=== PATIENT | male | born 1980 | race Caucasian/White ===

== ENCOUNTER 2021-02-08 06:11 | Outpatient (CLI) | payer OTHER ==
[~2021-02-08] VITALS: Ht 180.3 cm; Wt 79.5 kg
== END 2021-02-08 10:50 | disposition home or self-care (01) ==
LOC: PREOP 06:11
PROVIDERS: ATTEND Surgery
DX: Z01.818 Encounter for other preprocedural examination (principal)

== ENCOUNTER 2021-02-10 06:54 | Day surgery (SDC) | payer OTHER ==
[~2021-02-10] VITALS: Ht 180.3 cm; Wt 79.5 kg
[2021-02-10] VITALS (12 sets, daily range): BP systolic 111–161; BP diastolic 63–107
[2021-02-10] MEDS ORDERED: LIDOCAINE PF 2% 5 ML (XYLOCAINE) VIAL ONE (07:06)
[2021-02-10] MEDS ORDERED: ROCURONIUM 10 MG/ML 5 ML SYRINGE IV ONE (07:06)
[2021-02-10] MEDS ORDERED: NEOSTIGMINE 3 MG/3 ML VIAL ONE (07:06)
[2021-02-10] MEDS ORDERED: GLYCOPYRROLATE 0.2 MG/ML (ROBINUL) 2 ML VIAL ONE (07:06)
[2021-02-10] MEDS ORDERED: MIDAZOLAM 2 MG/2 ML (VERSED) VIAL ONE (07:06)
[2021-02-10] MEDS ORDERED: ONDANSETRON 4 MG/2 ML (SDV) Z0FRAN ONE (07:06)
[2021-02-10] MEDS ORDERED: proPOfol 200 MG/20 ML (DIPRIVAN) VIAL IV ONE (07:06)
[2021-02-10] MEDS ORDERED: SEVOFLURANE (ULTANE) 15 ML INHAL SOLN ONE ×4 (07:06→09:18)
[2021-02-10] MEDS ORDERED: fentaNYL INJ 100 MCG/2 ML AMP ONE (07:06)
[2021-02-10] MEDS ORDERED: LIDOCAINE/EPI 1%-1:100,000 (XYLOCAINE) 20ML ONE (07:06)
[2021-02-10] MEDS: LACTATED RINGERS 1,000 ML IV PRN ×3 (07:23→10:48)
[2021-02-10] MEDS ORDERED: ceFAZolin 2 GM IV Premixed 50 ML IV ONE (07:30)
[2021-02-10 07:34] LABS: BASOPHILS % (AUTO) 1 % (0-10); EOSINOPHILS # (AUTO) 0.4 10^3/uL (0.0-0.3); EOSINOPHILS % (AUTO) 6 % (0-10); HEMATOCRIT 45 % (40-54); HEMOGLOBIN 15.3 g/dL (13.3-17.7); LYMPHOCYTES # (AUTO) 1.8 10^3/uL (1.0-4.0); LYMPHOCYTES % (AUTO) 26 % (12-44); MEAN CORPUSCULAR HEMOGLOBIN 31 pg (25-34); MEAN CORPUSCULAR HGB CONC 34 g/dL (32-36); MEAN CORPUSCULAR VOLUME 90 fL (80-99); MEAN PLATELET VOLUME 10.2 fL (9.0-12.2); MONOCYTES # (AUTO) 0.7 10^3/uL (0.0-1.0); MONOCYTES % (AUTO) 10 % (0-12); NEUTROPHILS # (AUTO) 3.9 10^3/uL (1.8-7.8); NEUTROPHILS % (AUTO) 56 % (42-75); PLATELET COUNT 244 10^3/uL (130-400)
--- NOTE | 2021-02-10 08:02 | Progress Note-Pre Operative ---
Pre-Operative Progress Note H&P Reviewed The H&P was reviewed, patient examined and no changes noted. Time Seen by Provider: 07:59 Date H&P Reviewed: Feb 10, 2021 Time H&P Reviewed: 07:59 Pre-Operative Diagnosis: Right inguinal Hernia AGATHA PAZ DO Feb 10, 2021 08:02
[2021-02-10] MEDS ORDERED: HYDROmorphone 2 MG/ML VIAL (DILAUDID) ONE (09:32)
[2021-02-10] MEDS ORDERED: morphine INJ 10 MG/ML 1ML (SYR OR VIAL) IVP ONE (10:00)
[2021-02-10] MEDS ORDERED: HYDROmorphone 2 MG/ML VIAL (DILAUDID) IV ONE (10:00)
[2021-02-10] MEDS: ONDANSETRON 4 MG/2 ML (SDV) Z0FRAN IVP PRN ×2 (10:14→11:01)
--- NOTE | 2021-02-10 10:27 | Anesthesia-General Post-Op ---
General Patient Condition Mental Status/LOC: Same as Preop Cardiovascular: Satisfactory Nausea/Vomiting: Absent Respiratory: Satisfactory Pain: Controlled Complications: Absent Post Op Complications Complications None Follow Up Care/Instructions Patient Instructions None needed. Anesthesia/Patient Condition Patient Condition Patient was seen in PACU and doing well, no complaints, stable vital signs, no apparent adverse anesthesia problems. GINA WOMACK DO Feb 10, 2021 10:27
[2021-02-10] MEDS ORDERED: ACHD5005 PO (10:46)
--- NOTE | 2021-02-10 10:46 | Progress Note-Post Operative ---
Post-Operative Progess Note Surgeon (s)/Hot Packer (s) Surgeon AGATHA PAZ DO Hot Packer: Luana Pre-Operative Diagnosis Right inguinal Hernia Post-Operative Diagnosis Same Indirect Procedure & Operative Findings Date of Procedure 02/10/21 Procedure Performed/Findings After informed consent was obtained, the patient was brought to the operating room and placed on the operating table in a supine position. He was sterilely prepped and draped in a normal fashion. Local lidocaine was used to infiltrate the skin above the umbilicus. I made an incision with #11 blade, carried down to the skin into subcutaneous tissue and then deepened down the subcutaneous tissue with Bovie electrocautery down to the fascia. Fascia was incised with Bovie electrocautery and bluntly entered the abdomen, swept a finger around, placed 0 Vicryl [id number] suture and placed limited trocar port under direct visualization. Created pneumoperitoneum, able to visualize the hernia and took a picture of this and then placed two 8 mm ports about 10 cm on either side of the midline port using a local lidocaine, 11 blade for stab incision and then advanced the robotic port under direct visualization. Once this was in, I then placed the patient in Trendelenburg and then placed the working instruments, the fenestrated bipolar and the scissors. Looked on the leftt side and did not see a hernia. I could see an Indirect hernia defect on the right side. Next, I came across the peritoneum approximately 8 cm away from the hernia defect, going across laterally starting lateral about 17cm and cutting toward the median umbilical ligament. I then carefully dissected the visceral peritoneum away and down and then in the midline, went through the parietal side and dissected down to the pubic tubercle, dissecting this down carefully pushing the peritoneum away, I was able to then visualize the pubic tubercle and Ephraim's ligament. I went 2 cm posterior and at this point, we then had a critical view of the dissection, able to dissect 2 cm across the midline to the right side, 2 cm posterior to the Ephraim's ligament, able to then parietalize the vas deferens and spermatic vessels right at the groove between Ephraim's and iliac vein and able to dissect, make sure there was no peritoneum between those two, able to see the indirect hernia space, took a picture of this, looked at the femoral space (no hernia seen). Then I carefully teased out the hernia sac and could visualize the indirect hernia space. Next I looked on the cord and cord structures. There was a small cord lipoma that I was able to reduce as well. I could clearely see the inguinal canal and the indirect space. Next I carried the posterior lateral dissection all the way out and then placed a 12 x 17 Midwieght Bard 3DMax mesh. It laid in nicely, covered the hernia defect and the rest of the area. It was above the peritoneum, sutured it at the pubic tubercle with a 3-0 Vicryl suture and tied this off. I then placed a suture laterally to hold it in place. Again, this appeared to lay in very nicely. I then brought down the pneumoperitoneum to about 8 mmHg and then started closing the peritoneum. Started laterally and used a 2-0 V-lock barbed suture to start a running stitch to close the peritoneum. This was closed nicely, took a picture of the closure at this point, then removed both needles had switched to a suture concrete mixer truck driver from the scissors. The patient was then placed back supine, removed all ports under direct visualization, allowed pneumoperitoneum to escape and then closed the supraumbilical incision, closing the fascia with 0 Vicryl suture previously placed. Copiously irrigated all incisions and then closed the two small 8 mm incisions with two interrupted 4-0 undyed Monocryl subcuticular stitches and closed the supraumbilical incision with three interrupted undyed Monocryl subcuticular stitch. Area was cleaned and dried. Dermabond was placed. The patient tolerated the procedure. The sponge, instrument and needle counts were correct at the end of the case. Dr. Craft assisted during this surgery by making incisions, closing incisions, helping to identify anatomy and passing/retrieving suture and needles. Anesthesia Type GET Estimated Blood Loss Estimated blood loss (mL): scant Specimens/Packing Specimens Removed none AGATHA PAZ DO Feb 10, 2021 10:46
--- NOTE | 2021-02-10 10:47 | Discharge Inst-Surgical ---
Discharge Inst-Surgical Depart Medication/Instructions New, Converted or Re-Newed RX: RX Given to Pt/Family Patient Instructions Follow up Appt: Make appointment for 1 week. [phone] Instructions: No lifting greater than 20 pounds. No strenuous activity. May shower in 24 hours, no tub bath or soaking. Use incentive spirometer at home as directed. No Smoking Skin/Wound Care: May remove bandages in am. You need to leave the Dermabond on incision it will fall off on it's own. Symptoms to Report: Appetite Changes, Extremity Discoloration, Numbness/Tingling, Swelling Increased, Bleeding Excessive, Eyesight Changes, Pain Increased, Urine Color Change, Constipation(Persistent), Fever over 101 degree F, Pain/Pressure in chest, Urinating Difficulty, Cough Up/Vomit Blood, Heart Beat Irreg/Pounding, Pain/Pressure in jaw, Cramps in feet or legs, Lightheadedness, Pain/Pressure in shoulder, Diarrhea(Persistent), Memory Changes Suddenly, Questions/Concerns, Weight gain consecutive days, Dizziness/Fainting, Nausea/Vomiting, Shortness of Breath, Weight gain over 2 pounds If questions or concerns contact your physician Or seek help at emergency department. Activity Activity as Tolerated: Yes Activity Instructions: Avoid Stress to Incision Driving Instructions: No Driving/Refer to Dr. Kohli Discharge Diet: No Restrictions Diet After 24 Hours: Clear Liquid if Nauseous If Any Problems/Questions/Issu: Contact Your Physician, Go to Emergency Room Skin/Wound Care Infection Signs and Symptoms: Increased Redness, Foul Odor of Wound, Increased Drainage, Skin Itchy or Has a Rash, Increased Swelling, Temperature Above 101 F Wound Care Comment: heating pad to shoulder or neck for pain Bathing Instructions: Shower Stitches/Umair/Dermabond Dis: Dermabond Ice Pack: Ice On and Off Site AGATHA PAZ DO Feb 10, 2021 10:47
== END 2021-02-10 12:00 ==
LOC: SDC 06:54
PROVIDERS: ATTEND Surgery
DX: K40.90 Unilateral inguinal hernia, without obstruction or gangrene, not specified as recurrent (principal); D17.6 Benign lipomatous neoplasm of spermatic cord; F17.210 Nicotine dependence, cigarettes, uncomplicated
CPT/HCPCS: 49650; 85025; 87081; C1781; 36415